=== PATIENT | male | born 1975 | race Caucasian/White ===

== ENCOUNTER 2022-11-28 10:17 | Emergency (ER) | payer MEDICAID, OTHER ==
[~2022-11-28] VITALS: Ht 188 cm; Wt 94.1 kg
[~2022-11-28 10:17] MED LIST: CLOT15CR10 TP; IBUP-1984 PO; VALA10002 PO
[2022-11-28 10:40] VITALS: BP 147/91; PULSE 92; RESP 16; TEMP 99; O2SAT 97
[2022-11-28] MEDS ORDERED: SUMAtriptan 25 MG tablet PO ONE (11:25)
[2022-11-28] MEDS ORDERED: FLUT16SP2 BOTHNARES (11:33)
[2022-11-28] MEDS ORDERED: CETI10TA15 PO (11:33)
[2022-11-28] MEDS ORDERED: SUMA100T16 PO (11:33)
== END 2022-11-28 11:57 | disposition home or self-care (01) ==
LOC: ER 10:18
DX: R51.9 Headache, unspecified (principal); T78.49XA Other allergy, initial encounter; Z88.0 Allergy status to penicillin; Z88.2 Allergy status to sulfonamides; Z79.899 Other long term (current) drug therapy
CPT/HCPCS: 99283

== ENCOUNTER 2022-12-03 09:19 | Emergency (ER) | payer MEDICAID ==
[~2022-12-03] VITALS: Ht 188 cm; Wt 94.5 kg
[~2022-12-03 09:19] MED LIST changes: +CETI10TA15 PO; +FLUT16SP2 BOTHNARES; +SUMA100T16 PO
[2022-12-03 09:31] VITALS: BP 149/101; PULSE 90; RESP 17; TEMP 98.1; O2SAT 100
[2022-12-03 10:16] LABS: BASOPHILS # (AUTO) 0.1 X10'3 (0-0.2); BASOPHILS % (AUTO) 0.6 % (0-1); EOSINOPHILS # (AUTO) 0.1 X10'3 (0-0.9); EOSINOPHILS % (AUTO) 1.2 % (0-6); HEMATOCRIT 44.1 % (42.0-52.0); HEMOGLOBIN 15.2 g/dl (14.0-17.9); LYMPHOCYTES # (AUTO) 3.4 X10'3 (1.1-4.8); LYMPHOCYTES % (AUTO) 32.3 % (21-51); MEAN CORPUSCULAR HGB CONC 34.4 g/dL (33.0-36.5); MEAN CORPUSCULAR VOLUME 87.4 FL (78-98); MEAN PLATELET VOLUME 8.6 FL (7.4-10.4); MONOCYTES # (AUTO) 0.4 X10'3 (0-0.9); MONOCYTES % (AUTO) 4.1 % (2-12); NEUTROPHILS # (AUTO) 6.5 X10'3 (1.8-7.7); NEUTROPHILS % (AUTO) 61.8 % (42-75); PLATELET COUNT 280 X10'3 (140-440); RED BLOOD COUNT 5.05 X10'6 (4.70-6.10); RED CELL DISTRIBUTION WIDTH 13.9 % (11.5-14.5); WHITE BLOOD COUNT 10.6 X10'3 (4.5-11.0)
[2022-12-03 10:33] LABS: ALANINE AMINOTRANSFERASE 41 U/L (12-78); ALKALINE PHOSPHATASE 104 IU/L (46-116); ANION GAP 7 (8-16); ASPARTATE AMINO TRANSFERASE 24 U/L (10-37); BILIRUBIN,TOTAL 0.4 MG/DL (0.1-1.0); BLOOD UREA NITROGEN 12 MG/DL (7-18); BUN/CREATININE RATIO 12.2 (10.0-20.0); CALCIUM 9.3 MG/DL (8.5-10.1); CHLORIDE 102 MMOL/L (99-107); CREATININE 0.98 MG/DL (0.60-1.10); GLUCOSE 128 MG/DL (70-104); POTASSIUM 4.4 MMOL/L (3.5-5.1); SODIUM 138 MMOL/L (135-145); TOTAL CARBON DIOXIDE 28.7 MMOL/L (24-32); TOTAL PROTEIN 8.1 G/DL (6.4-8.2); eGFR 82 ML/MIN
== END 2022-12-03 10:48 | disposition home or self-care (01) ==
LOC: ER 09:20
DX: G43.909 Migraine, unspecified, not intractable, without status migrainosus (principal); Z88.0 Allergy status to penicillin; Z88.2 Allergy status to sulfonamides; Z79.899 Other long term (current) drug therapy; Z79.2 Long term (current) use of antibiotics
CPT/HCPCS: 36415; 70450; 80053; 85025; 99284

== ENCOUNTER 2024-01-09 06:24 | Emergency (ER) | payer MEDICAID, OTHER ==
[~2024-01-09] VITALS: Ht 188 cm; Wt 92.5 kg
[2024-01-09 07:03] LABS: BILIRUBIN,URINE NEGATIVE (Neg); CLARITY,URINE SLIGHTLY CLOUDY (Clear); COLOR,URINE YELLOW (Yellow); GLUCOSE, URINE NEGATIVE (Neg); KETONES,URINE NEGATIVE (Neg); LEUKOCYTE ESTERASE ,URINE SMALL (Neg); NITRITES, URINE NEGATIVE (Neg); OCCULT BLOOD,URINE SMALL (Neg); PROTEIN,URINE TRACE mg/dl (Neg); UROBILINOGEN,URINE 0.2 E.U/dL (0.2-1.0)
[2024-01-09 07:08] LABS: UA COLLECTION TYPE CLN CATCH MIDSTREAM
[2024-01-09 07:11] LABS: WBC,URINE 30-50 /HPF (0-4)
[2024-01-09 07:12] LABS: BACTERIA,URINE FEW /HPF (Neg); MUCUS STRANDS FEW /LPF (Neg); SPERM FEW /HPF (NEGATIVE); SQUAMOUS EPITHELIAL CELL,UR MODERATE /LPF (FEW); WBC CLUMPS,URINE FEW /HPF (NEGATIVE)
[2024-01-09 08:00] LABS: BASOPHILS % (AUTO) 0.5 % (0-1); EOSINOPHILS # (AUTO) 0.1 X10'3 (0-0.9); EOSINOPHILS % (AUTO) 1.5 % (0-6); HEMATOCRIT 43.4 % (42.0-52.0); HEMOGLOBIN 14.9 g/dl (14.0-17.9); LYMPHOCYTES # (AUTO) 3.3 X10'3 (1.1-4.8); LYMPHOCYTES % (AUTO) 37.4 % (21-51); MEAN CORPUSCULAR HEMOGLOBIN 29.4 PG (27.0-31.0); MEAN CORPUSCULAR HGB CONC 34.3 g/dL (33.0-36.5); MEAN CORPUSCULAR VOLUME 85.7 FL (78-98); MEAN PLATELET VOLUME 8.8 FL (7.4-10.4); MONOCYTES # (AUTO) 0.5 X10'3 (0-0.9); MONOCYTES % (AUTO) 6.1 % (2-12); NEUTROPHILS # (AUTO) 4.8 X10'3 (1.8-7.7); NEUTROPHILS % (AUTO) 54.5 % (42-75); PLATELET COUNT 210 X10'3 (140-440); RED BLOOD COUNT 5.06 X10'6 (4.70-6.10); RED CELL DISTRIBUTION WIDTH 14.4 % (11.5-14.5); WHITE BLOOD COUNT 8.9 X10'3 (4.5-11.0)
[2024-01-09 08:15] LABS: ALANINE AMINOTRANSFERASE 47 U/L (12-78); ALBUMIN 3.9 G/DL (3.4-5.0); ALKALINE PHOSPHATASE 78 IU/L (46-116); ANION GAP 9 (8-16); ASPARTATE AMINO TRANSFERASE 29 U/L (10-37); BILIRUBIN,TOTAL 0.6 MG/DL (0.1-1.0); BLOOD UREA NITROGEN 15 MG/DL (7-18); BUN/CREATININE RATIO 17.2 (10.0-20.0); CALCIUM 8.7 MG/DL (8.5-10.1); CHLORIDE 104 MMOL/L (99-107); CREATININE 0.87 MG/DL (0.60-1.10); GLUCOSE 89 MG/DL (70-104); LIPASE 31 U/L (16-77); POTASSIUM 4.1 MMOL/L (3.5-5.1); SODIUM 140 MMOL/L (135-145); TOTAL CARBON DIOXIDE 26.9 MMOL/L (24-32); TOTAL PROTEIN 7.8 G/DL (6.4-8.2); eCRCL 122 ML/MIN; eGFR > 90 ML/MIN
[2024-01-09 08:58] VITALS: BP 138/94; PULSE 70; RESP 16; TEMP 98.3; O2SAT 98
== END 2024-01-09 08:59 | disposition home or self-care (01) ==
LOC: ER 06:26
DX: R31.9 Hematuria, unspecified (principal); R10.84 Generalized abdominal pain; Z88.0 Allergy status to penicillin; Z88.2 Allergy status to sulfonamides; Z79.899 Other long term (current) drug therapy; Z79.52 Long term (current) use of systemic steroids; Z79.1 Long term (current) use of non-steroidal anti-inflammatories (NSAID); Z72.89 Other problems related to lifestyle; Z60.2 Problems related to living alone
CPT/HCPCS: 36415; 74176; 80053; 81001; 83690; 85025; 87088; 87186; 99284

== ENCOUNTER 2024-01-31 15:13 | Emergency (ER) | payer MEDICAID, OTHER ==
[~2024-01-31] VITALS: Ht 188 cm; Wt 91.5 kg
[2024-01-31] MEDS ORDERED: NIRM1TAB9 PO (16:23)
[2024-01-31 16:39] VITALS: BP 132/78; PULSE 90; RESP 18; TEMP 97.9; O2SAT 98
== END 2024-01-31 16:41 | disposition home or self-care (01) ==
LOC: ER 15:14
DX: U07.1 COVID-19 (principal); Z88.0 Allergy status to penicillin; Z88.2 Allergy status to sulfonamides; Z79.899 Other long term (current) drug therapy; Z79.51 Long term (current) use of inhaled steroids; Z72.89 Other problems related to lifestyle; Z60.2 Problems related to living alone
CPT/HCPCS: 36415; 87811; 99283

== ENCOUNTER 2024-03-20 08:53 | Emergency (ER) | payer MEDICAID ==
[~2024-03-20] VITALS: Ht 190.5 cm; Wt 91.3 kg
[~2024-03-20 08:53] MED LIST changes: +NIRM1TAB9 PO
[2024-03-20 09:04] VITALS: BP 155/97; PULSE 87; RESP 16; O2SAT 97
[2024-03-20] MEDS ORDERED: PRED10TA23 PO (10:27)
[2024-03-20] MEDS ORDERED: ALBU8HFA INH (10:27)
[2024-03-20] MEDS ORDERED: AZIT500T2 PO (10:27)
[2024-03-20 10:47] VITALS: TEMP 98.4
== END 2024-03-20 10:53 | disposition home or self-care (01) ==
LOC: ER 08:53
DX: J06.9 Acute upper respiratory infection, unspecified (principal); R05.9 Cough, unspecified; R06.02 Shortness of breath; F17.210 Nicotine dependence, cigarettes, uncomplicated; Z88.0 Allergy status to penicillin; Z88.1 Allergy status to other antibiotic agents; Z88.2 Allergy status to sulfonamides
CPT/HCPCS: 99283

== ENCOUNTER 2025-02-25 10:13 | Emergency (ER) | payer MEDICAID ==
[~2025-02-25] VITALS: Ht 188 cm; Wt 94.8 kg
[~2025-02-25 10:13] MED LIST changes: +NIRM1TAB13 PO; -NIRM1TAB9 PO
[2025-02-25 10:26] VITALS: BP 146/103; PULSE 82; RESP 16; TEMP 97.4; O2SAT 98
[2025-02-25] MEDS ORDERED: CIPR2.5D21 EACHEYE (11:51)
--- NOTE | 2025-02-25 11:51 | Physician Documentation ---
History of Present Illness ~ Chief Complaint: Eye Pain Stated Complaint: EYE PAIN AND SORE ON GROIN Time Seen by MD: 11:33 Primary Medical Doctor: bill chavarria in Source: patient Mode of Arrival: POV Exam Limitations: no limitations HPI 49-year-old male with hordeolum/stye eyes to both eyes he has been getting multiple styes and has noticed some skin changes where he has a higher risk of getting staff requesting a derm referral. Medication Reconciliation Allergies: Coded Allergies: Penicillins (Verified Allergy, Unknown, 02/25/25) Sulfa (Sulfonamide Antibiotics) (Verified Allergy, Unknown, 02/25/25) Scheduled Cetirizine HCl (Cetirizine HCl), 1 TAB PO DAILY Clotrimazole (Clotrimazole), 1 APPLIC TP BID Fluticasone Propionate (Flonase), 2 SPRAYS BOTHNARES DAILY Nirmatrelvir/Ritonavir (Paxlovid 300-100 mg Dose Pack), 1 TAB PO BID Sumatriptan Succinate (Sumatriptan Succinate), 1 TAB PO UD Valacyclovir HCl (Valtrex), 1 TAB PO Q8H Scheduled PRN Ibuprofen* (Motrin*), 400 MG PO Q12H PRN for pain, (Reported) Past Medical History Past Medical History: No Pertinent History Past Surgical History: no surgical history Other Past Family History: NONE Alcohol Use: Occasionally Drug Use: none Lives with: Alone Lives In: Home Occupation: employed Review of Systems All Other Systems at this time: Reviewed and Negative ENT: Reports: see HPI Physical Exam Vital Signs: RN Vital Signs have been reviewed: Yes, Temperature: 97.4, Source: Temporal, Heart Rate: 82, Respiratory Rate: 16, BP: 146/103, Pulse Oximetry: 98, Weight: 94.800 Oxygen Flow Rate: 0 Physical Exam General: Alert, no apparent distress. HEENT: moist mucous membranes. Swelling with small lower lid stye to the right lower lid and 1 to the left lower lid near the inner canthus no visual changes PERRLA smooth EOM Neck: Full range of motion. Respiratory: No respiratory distress speaking in full sentences Chest: No accessory muscle use. Cardiovascular: Appears well perfused Neurologic: Oriented x4. Psychiatric: Normal mood and affect. Skin: Normal color, warm and dry. No edema, no ecchymosis. Progress Results/Orders Results/Orders Vital Signs 02/25/25 10:26 Temp 97.4 Pulse 82 Resp 16 B/P (MAP) 146/103 Pulse Ox 98 O2 Flow Rate 0 Medical Decision Making Additional information obtaine: N/A Findings We will give antibiotic drops to help with other conservative measures for size including warm compress. Patient will follow up with ophthalmology and follow up with primary care for dermatology referral as he wants a skin check for skin cancer. Ear Diff. Dx: Considerations: Include: Other Eye Diff. Dx: Considerations: Include: Chalazoin, Hordeolum, Orbital cellulitis Nose Diff. Dx: Considerations: Unlikely: Abrasion, Anterior nasal bleed, Avulsion, Contusion, Coagulopathy, Fracture-nasal bone, Fracture-septum, Hypertension, Laceration, Other, Posterior nasal bleed, Retained foreign body, Septal hematoma Tooth Diff. Dx: Considerations: Unlikely: Alveolar fracture, Aveolar osteitis, ANUG, Facial cellulitis, Periapical abscess, Periodontal abscess, Post- extraction bleeding, Pulpitis, Trigeminal neuralgia, Tooth-avulsion, Tooth- eruption, Tooth-fracture, Tooth-subluxation, Other Throat Diff Dx: Considerations: Unlikely: AIDS, Epiglottitis, Esophageal candidiasis, Hand foot mouth disease, Herpangina, Herpetic stomatitis, Herpes simplex, Infection mononucleosis, Immunodeficiency, Brendan's angina, Peritonsillar abscess, Peritonsillar cellulitis, Pharyngitis-diphtheria, Pharyngitis-strepococcal, Pharyngitis-viral, Thrush, URI, Other Departure Time of Disposition: 11:50 Disposition: 01 HOME / SELF CARE / HOMELESS Impression: Primary Impression: Stye external Condition: Stable Discharge Instructions: Sty Additional Instructions: Use antibiotic eyedrops as needed to help along with conservative measures which includes warm compress to help facilitate drainage of styes. As for the other multiple skin conditions including skin check for cancer needs to be followed up with primary care for dermatology referral. Referrals: NO PRIMARY CARE PROVIDER (PCP) Prescriptions Ciprofloxacin Hcl Ophth* (Ciloxan 0.35 Ophth Drops*) 2.5 Ml Bottle 1-2 DROP EACHEYE Q4HWA for 7 Days, #5 EACH Prov: LISSET HENSON NP 02/25/25 Education Educated: Patient Educated regarding: diagnosis, treatment, need for follow up Signature Scribe Signature: No scribe Attestation: The note accurately reflects work and decisions made by me.Lisset AMIN 02/25/25 11:51 LISSET HENSON NP Feb 25, 2025 11:51
== END 2025-02-25 11:59 | disposition home or self-care (01) ==
LOC: ER 10:14
DX: H00.015 Hordeolum externum left lower eyelid (principal); H00.012 Hordeolum externum right lower eyelid; Z88.0 Allergy status to penicillin; Z88.2 Allergy status to sulfonamides; Z79.899 Other long term (current) drug therapy; Z72.89 Other problems related to lifestyle; Z60.2 Problems related to living alone
CPT/HCPCS: 99283